=== PATIENT | female | born 1975 | race American Indian/Alaskan Native ===

== ENCOUNTER 2016-09-24 09:28 | Emergency (ER) | payer SELFPAY ==
[2016-09-24 09:42] VITALS: BP 132/82
--- NOTE | 2016-09-24 10:27 | XRay Report ---
ROUTINE CHEST, TWO VIEWS: HISTORY: Cough, pneumonia 2 weeks ago. The trachea, heart, mediastinal contour, lung gómez and bony thorax are unremarkable. IMPRESSION: Unremarkable chest x-ray.
--- NOTE | 2016-09-24 12:11 | Emergency Department Report ---
HPI - General Chief Complaint: Upper Respiratory Infection Time Seen by Provider: 09/24/16 11:36 - HPI HPI: She is a 41-year-old female presents to ED she was diagnosed with pneumonia 2 weeks ago and was treated according several 50 daily for 10 days. Patient states that she took her last dose 2 days ago and her symptoms are not relieved. She states she is still coughing and having pain associated with coughing. She denies fevers/chills/nausea/vomiting ED Past Medical Hx - Past Medical History Previous Medical History?: Yes Additional medical history: pneumonia - Surgical History Past Surgical History?: No - Social History Smoking Status: Current Every Day Smoker Substance Use Type: Alcohol, Prescribed - Medications Home Medications: Home Medications Medication Instructions Recorded Confirmed Last Taken Type ALBUTEROL Inhaler [ProAir HFA 2 puff IH TID PRN #1 pump 09/24/16 Unknown Rx Inhaler] Acetamin/Codeine 120-12Mg/5 ml 5 ml PO TID PRN #60 ml 09/24/16 Unknown Rx [Tylenol/Codeine] Amoxicillin [Amoxicillin TAB] 875 mg PO BID #12 tablet 09/24/16 Unknown Rx Benzonatate [Tessalon Perles] 100 mg PO Q8HR #21 capsule 09/24/16 Unknown Rx ED Review of Systems ROS: Stated complaint: POSS PNEMONIA Other details as noted in HPI Constitutional: denies: chills, fever Eyes: denies: eye pain, eye discharge, vision change ENT: denies: ear pain, throat pain Respiratory: cough. denies: shortness of breath, wheezing Cardiovascular: denies: chest pain, palpitations Endocrine: no symptoms reported Gastrointestinal: denies: abdominal pain, nausea, diarrhea Genitourinary: denies: urgency, dysuria, discharge Musculoskeletal: denies: back pain, joint swelling, arthralgia Skin: denies: rash, lesions Neurological: denies: headache, weakness, paresthesias Psychiatric: denies: anxiety, depression Hematological/Lymphatic: denies: easy bleeding, easy bruising Physical Exam - Physical Exam Vital Signs: Vital Signs 09/24/16 09:35 Temperature 99.1 F Pulse Rate 80 Respiratory 18 Rate Blood Pressure 132/82 O2 Sat by Pulse 100 Oximetry Physical Exam: GENERAL: Alert and oriented x3, no apparent distress, Normal Gait, atraumatic. HEAD: Head is normocephalic and a-traumatic. EYES: Extra ocular muscles are intact. Pupils are equal, round, and reactive to light and accommodation. EARS: symetrical, atraumatic, non tender, ear canal clear and moderate cerumen, tympanic membrance non inflamed. gross auditory nml bilaterally. NOSE: Nose symetrical, Nontender,Nares appeared normal. MOUTH:Mouth is well hydrated and without lesions. Tonsils nonerythematous or swollen, Uvula midline, Tongue not elevated. Mucous membranes are moist. Posterior pharynx clear, no exudate or lesions. Patent airways. NECK: Supple. Non edematous, No carotid bruits. No lymphadenopathy or thyromegaly. No C-spine tenderness LUNGS: Symetrical with respiration, No wheezing, no rales or crackles, CTAB. HEART: S1, S2 present, regular rate and rhythm without murmur, no rubs, no gallops. Non tender to palpation EXTREMITIES/MUSCULOSKELETAL: No cyanosis, clubbing, rash, lesions or edema. Full ROM bilaterally. UE Pulses 2+ bilaterally. SKIN: Warm and dry, No lesions, No ulceration or induration present. ED Course Vital Signs 09/24/16 09:35 Temperature 99.1 F Pulse Rate 80 Respiratory 18 Rate Blood Pressure 132/82 O2 Sat by Pulse 100 Oximetry ED Medical Decision Making - Medical Decision Making 41-year-old female presents with bronchitis ED Course: Chest x-ray was ordered. Chest x-ray shows no remarkable disease. Lung gómez are clear, no infiltrates: Remarkable chest x-ray Vital signs are normal patient is in acute distress at the moment. Discussed with patient need for dramatic relief with [id number] medications. Discussed no need for another dose of Levaquin as chest x-ray is unremarkable and she does not have pneumonia at present. Patient is adamant about getting some amoxicillin due to the fact that that was what worked for her last time. Discussed worsening symptoms return to ED otherwise follow-up with a primary care physician. Signed she is in no respiratory distress Critical care attestation.: If time is entered above; I have spent that time in minutes in the direct care of this critically ill patient, excluding procedure time. ED Disposition Clinical Impression: Bronchitis Disposition: [id number] TO HOME OR SELFCARE Is pt being admited?: No Does the pt Need Aspirin: No Condition: Stable Instructions: Acute Bronchitis (ED), Chronic Bronchitis (ED), Upper Respiratory Infection (ED) Prescriptions: Acetamin/Codeine 120-12Mg/5 ml [Tylenol/Codeine] 5 ml PO TID PRN #60 ml PRN Reason: Pain ALBUTEROL Inhaler [ProAir HFA Inhaler] 2 puff IH TID PRN #1 pump PRN Reason: Shortness Of Breath Amoxicillin [Amoxicillin TAB] 875 mg PO BID #12 tablet Benzonatate [Tessalon Perles] 100 mg PO Q8HR #21 capsule Referrals: PRIMARY CARE, [Primary Care Provider] - 3-5 Days [facility] [Outside] - 3-5 Days [facility] [Outside] - 3-5 Days [facility] [Outside] - 3-5 Days Forms: Work/School Release Form(ED) Time of Disposition: 12:23
[2016-09-24] MEDS ORDERED: DELTASONE PO ONE (12:22)
== END 2016-09-24 12:43 | disposition home or self-care (01) ==
LOC: ED 09:28
DX: J40 Bronchitis, not specified as acute or chronic (principal); F17.210 Nicotine dependence, cigarettes, uncomplicated
CPT/HCPCS: 71020; 99283; J7512